=== PATIENT | female | born 1935 | race Caucasian/White ===

== ENCOUNTER → 2022-10-31 13:31 | Outpatient (CLI) | payer MEDICARE, OTHER, SELFPAY ==
--- NOTE | 2022-10-31 | DI.ECHO.S_ITS ---
[place] [facility]---------+ [facility] +---------+ : : [address] : : : : [place] [address] : : : : [id number] : : : : Phone: [phone]+ Echocardiogram Report + + :Name: MINNA HART Study Date: 10/31/2022 Height: 63 in : :[facility] ReadingLocation: Weight: 107 lb : : Gender: Female BSA: 1.5 m2 : :: 1935 Age: 87 yrs BP: 133/62 mmHg: :Reason For Study: CORONARY ARTERY DISEASE HR: 75 : :Ordering Physician: ALEXANDRA, : :AARON Performed By: SAY MALDONADO : :Referring: AARON MORRIS : + + Interpretation Summary The ejection fraction is estimated to be 55-60%. There is mild mitral regurgitation. No definite mitral valve prolapse There is mild aortic valve sclerosis. There is moderate to severe tricuspid regurgitation. The right ventricular systolic pressure is estimated to be at least 37 mmHg based on an estimated right atrial pressure of 8 mm Hg. Procedure: A two-dimensional transthoracic echocardiogram with color flow and Doppler was performed. The study quality was technically adequate. Comparison is made with the echocardiogram of 08/18/2020. The patient was in normal sinus rhythm during the exam. Left Ventricle: The left ventricle is normal in size and wall thickness. Left ventricular systolic function is normal. The ejection fraction is estimated to be 55-60%. Left ventricular wall motion is normal. Right Ventricle: The right ventricle is normal in size and function. Atria: The left atrial size is normal. The right atrium is moderately dilated. There is no Doppler evidence for an interatrial shunt. Mitral Valve: The mitral valve leaflets appear mildly thickened, but open well. The mitral valve leaflets are slightly calcified. No definite mitral valve prolapse. There is mild mitral regurgitation. Aortic Valve: The aortic valve is trileaflet. There is mild aortic valve sclerosis. There is no aortic valve stenosis. There is mild aortic regurgitation. Tricuspid Valve: The tricuspid valve leaflets are thickened and/or calcified, but open well. There is moderate to severe tricuspid regurgitation. The right ventricular systolic pressure is estimated to be at least 37 mmHg based on an estimated right atrial pressure of 8 mm Hg. Pulmonic Valve: The pulmonic valve leaflets are thin and pliable; valve motion is normal. There is mild pulmonic regurgitation. Great Vessels: The aortic root is normal size. The ascending aorta is normal in size. The IVC is dilated (diameter is greater than 2.1 cm) yet it collapses greater than 50% with a sniff. This suggests a right atrial pressure of 8 mm Hg. Pericardium/ Pleura There is no pericardial effusion. There is no pleural effusion. MMode/2D Measurements & Calculations LVIDd: 3.4 cm LVOT diam: 1.8 cm LVIDs: 2.1 cm Ao root diam: 3.4 cm FS: 38.2 % asc Aorta Diam: 3.5 cm IVSd: 0.90 cm LVPWd: 1.0 cm LV shelton. diameter/BSA (cm/m^2): 2.3 LV sys. diameter/BSA (cm/m^2): 1.4 LA A2 area: 10.4 cm2 RA long axis: 4.2 cm LA A4 area: 13.1 cm2 LA length (vol): 3.8 cm LA vol: 30.1 ml LA vol index: 20.3 ml/m2 LVLs ap4: 5.1 cm LVLd ap2: 6.8 cm LVLs ap2: 5.3 cm TAPSE_phl: 2.0 cm Doppler Measurements & Calculations Ao V2 max: 103.0 cm/sec LVOT Max Rodo: 89.4 cm/sec Ao V2 mean: 76.5 cm/sec LV V1 max P.2 mmHg Ao max P.2 mmHg LV V1 VTI: 19.6 cm Ao mean P.0 mmHg ROYCE(I,D): 2.1 cm2 Ao V2 VTI: 23.3 cm ROYCE(V,D): 2.2 cm2 sev ratio: 0.84 ROYCE indexed to BSA (cm^2/m^2): 1.4 MV E max rodo: 90.4 cm/sec TR max rodo: 271.0 cm/sec MV A max rodo: 70.3 cm/sec TR max P.4 mmHg MV E/A: 1.3 PA V2 max: 103.0 cm/sec Med Peak E' Rodo: 7.9 cm/sec PA V2 mean: 79.0 cm/sec E/E' med: 11.4 PA mean P.0 mmHg Lat Peak E' Rodo: 7.0 cm/sec PA pr(Accel): 34.4 mmHg E/E' lat: 13.0 E/e' average: 12.2 MV dec time: 0.18 sec SV(LVOT): 49.9 ml AV VR_phl: 0.87 ROYCE(VTI)/BSA_phl: 1.4 MV P1/2t-pr_phl: 53.0 msec Reading Physician:02:58 PM
== END ==
PROVIDERS: PCP Nurse Practitioner Family; Referring Provider Nurse Practitioner Family; Visit Provider Nurse Practitioner Family
DX: I08.3 Combined rheumatic disorders of mitral, aortic and tricuspid valves (principal); I25.119 Atherosclerotic heart disease of native coronary artery with unspecified angina pectoris; I25.2 Old myocardial infarction
CPT/HCPCS: 93306

== ENCOUNTER 2023-02-19 18:29 | Emergency (ER) | payer MEDICARE, OTHER, SELFPAY ==
[2023-02-19 18:44] VITALS: BP 147/66; PULSE 98; RESP 16; TEMP 37.4; O2SAT 97; BMI 18.8
--- NOTE | 2023-02-19 20:45 | PC.NURSE ---
pt states a few days ago she noticed BLE edema so she has been propping up her legs then her left wrist became red and swollen, the left elbow is also red an swollen, she has left shoulder pian but no redness or swelling noted. pt's right ankle is swollen but no redness is noted
--- NOTE | 2023-02-19 20:59 | ED.SKABFB ---
HPI - Skin/Abscess/Foreign Bdy General Chief complaint: Skin/Abscess/Foreign Body Stated complaint: FT swollen T-3, Larm pain/limited mobility Time Seen by Provider: 02/19/23 20:31 Source: patient Mode of arrival: Wheelchair History of Present Illness HPI narrative: Patient is an 88-year-old female currently being treated with Keflex for urinary tract infection without any specific trauma who a couple days ago started have swelling in both of her ankles. She reports that she also had some discomfort in her ankles with the time. The swelling in her left ankle has resolved in the 1 in her right ankle was actually improving but she is still having some discomfort and redness. Yesterday she started to have discomfort and redness to her left elbow when her left wrist. She also reports some discomfort to her left shoulder. She denies any fevers. She can flex and extend her elbow and her wrist but has quite a bit of discomfort with this. She is no history of gout. No fevers. Overall she feels well. Related Data Home Medications Medication Instructions Recorded Confirmed cephalexin 500 mg capsule 500 mg TID 02/19/23 02/19/23 Previous Rx's Medication Instructions Recorded colchicine 0.6 mg tablet (Colcrys) 0.6 mg PO BID #30 tabs 02/19/23 Allergies Allergy/AdvReac Type Severity Reaction Status Date / Time No Known Drug Allergies Allergy Verified 02/19/23 21:11 Review of Systems Constitutional Constitutional: Reports system reviewed and no additional complaints, except as documented Respiratory Respiratory: Reports system reviewed and no additional complaints, except as documented Musculoskeletal Musculoskeletal: Reports system reviewed and no additional complaints, except as documented Integumentary/Breasts Skin/Breast: Reports system reviewed and no additional complaints, except as documented Neurologic Neurologic: Reports system reviewed and no additional complaints, except as documented Hematologic/Lymphatic On Anticoagulants: No Patient History Social History Smoking Status: Never smoker Smoking Status: Never smoker Substance Use Type: does not use Exam Initial Vital Signs Initial Vital Signs: Vital Signs Temperature 99.3 F 02/19/23 18:44 Pulse Rate 98 H 02/19/23 18:44 Respiratory Rate 16 02/19/23 18:44 Blood Pressure 147/66 H 02/19/23 18:44 Pulse Oximetry 97 02/19/23 18:44 Oxygen Delivery Method Room Air 02/19/23 18:44 Const General: cooperative, comfortable and No ill appearing HENMT Head: normal to inspection and normocephalic Resp Effort & Inspection: normal respiratory effort Skin Other: Patient does have redness and swelling to the right ankle. There are no vesicles in the area. Patient also has redness on the dorsum of the left wrist and in the lateral aspect of the left elbow. Neuro General: patient alert, patient awake, patient oriented x3 and moves all extremities Extrem Other: Patient is able to ambulate. She does have swelling and redness to the left ankle. Is able to flex and extend. She does have tenderness along the lateral malleolus but equal tenderness on the medial malleolus and on the dorsum of the foot as well. She also has mild swelling and redness to the left wrist. She is able to flex and extend but has some discomfort with this limited by the discomfort. She is able to pronate and supinate. She is able to flex and extend her left elbow but has discomfort with this as well. Mild tenderness to palpation throughout the left elbow. Also has tenderness palpation of the left shoulder. Course Orders Ordered: ED Orders 02/19/23 21:00 XR ankle RT min 3V Stat XR elbow LT min 3V Stat XR wrist LT min 3V Stat 02/19/23 21:11 Basic Metabolic Panel Stat C-Reactive Protein Quant Stat Complete Blood Count AUTO DIFF Stat Erythrocyte Sedimentation Rate Stat NT-proBNP (BNP-Adult 18+) Stat Uric Acid Stat Discontinued Medications Colchicine (Colchicine 0.6 Mg Tablet) 1.2 mg PO NOW ONE Stop: 02/19/23 23:56 Last Admin: 02/20/23 00:14 Dose: 1.2 mg Documented By: SAEID Vital Signs Vital signs: Vital Signs - 8 hr 02/19/23 18:44 02/20/23 00:07 Temperature 99.3 F Pulse Rate 98 H 89 Respiratory Rate 16 18 Blood Pressure 147/66 H 134/69 Pulse Oximetry 97 96 Oxygen Delivery Method Room Air Room Air MDM - Skin/Abscess/Foreign Bdy Lab Data Attestation: I reviewed the patient's lab results. 02/19/23 21:11 02/19/23 21:11 Labs: Lab Results 02/19/23 02/19/23 Range/Units 21:11 21:11 WBC 14.0 H (4.5-11.0) X10^3/uL RBC 4.03 (4.0-5.2) X10^6/uL Hgb 11.2 L (12.0-16.0) g/dL Hct 34.1 L (36-46) % MCV 84.6 (80-100) fL MCH 27.8 (26-34) PG MCHC 32.9 (30-36) % RDW 14.0 (11.6-14.8) % Plt Count 394 (150-400) X10^3/uL Neut % (Auto) 74.3 (50-75) % Lymph % (Auto) 15.5 L (25-40) % [place] % (Auto) 8.6 (3-14) % Eos % (Auto) 0.5 L (2-4) % Baso % (Auto) 1.1 (0-2) % Neut # (Auto) 37018 H (3563-2894) /uL Lymph # (Auto) 2200 (4033-2842) /uL [place] # (Auto) 1200 H (0-900) /uL Eos # (Auto) 100 (0-450) /uL Baso # (Auto) 200 H (0-100) /uL ESR 61 H (0-20) MM/HR Sodium 136 L (137-145) mmol/L Potassium 3.6 (3.4-5.1) mmol/L Chloride 101 (98-107) mmol/L Carbon Dioxide 29 (22-32) mmol/L BUN 16 (7-17) mg/dL Creatinine 0.57 (0.52-1.04) mg/dL Estimated GFR > 60 (>60) mL/min BUN/Creatinine Ratio 28.1 H (6-22) Glucose 119 H (80-110) mg/dL Uric Acid 4.1 (2.5-6.2) mg/dL Calcium 9.0 (8.4-10.2) mg/dL C-Reactive Protein 13.6 H (<1.0) mg/dL NT-Pro-B Natriuret Pep 613 H (<450) pg/mL Imaging Data Extremity x-ray #1: Radiologist's Impression: PROCEDURE:? XR ANKLE RT MIN 3V ? INDICATIONS:? swelling ? TECHNIQUE:? 3 views of the ankle were acquired.? ? COMPARISON:? None. ? FINDINGS:? ? Bones:? There is a small avulsion fracture along the inferior aspect of the lateral malleolus.? No dislocation.? Ankle mortise is normally aligned.? No suspicious bony lesions.? ? Soft tissues:? There is a suspected small tibiotalar joint effusion.? Periarticular soft tissue swelling is demonstrated most prominent laterally.? Achilles tendon appears normal.? ? ? IMPRESSION:? ? 1. Small avulsion fracture of the lateral malleolus inferiorly. Extremity x-ray #2: Radiologist's Impression: PROCEDURE:? XR ELBOW LT MIN 3V ? INDICATIONS:? pain and swelling ? TECHNIQUE:? 3 views of the elbow were acquired.? ? COMPARISON:? None. ? FINDINGS:? ? Bones:? No displaced fractures or dislocation.? No suspicious bony lesions.? ? Soft tissues:? There is an elbow joint effusion.? No suspicious soft tissue calcifications.? ? ? IMPRESSION:? ? 1. No displaced fracture or dislocation. ? 2. Elbow joint effusion suspicious for an occult fracture.? Further evaluation may be obtained with a repeat study in 7-10 days or cross-sectional imaging.? Extremity x-ray #3: Radiologist's Impression: P a ROCEDURE:? XR WRIST LT MIN 3V ? INDICATIONS: pain and swelling ? TECHNIQUE:? 3 views of the wrist were acquired.? ? COMPARISON:? None. ? FINDINGS:? ? Bones:? No fractures or dislocations.? There is mild degeneration of the 1st carpometacarpal joint and triscaphe articulation.? Mild degeneration also demonstrated in the wrist at the radiocarpal joint and distal radioulnar joint.? No suspicious bony lesions.? ? Soft tissues:? There is mild chondrocalcinosis in the triangular fibrocartilage complex. ? IMPRESSION:? ? 1. No acute fracture or subluxation.? MDM Narrative Medical decision making narrative: X-rays show a avulsion fracture of the lateral malleolus but I feel that this is most likely old. She does have tenderness over this area but also has equal tenderness throughout her right ankle. She also has tenderness throughout her left elbow and is able to flex and extend but limited by the discomfort. She is no history of gout. Her uric acid is negative. She does have leukocytosis and elevation in her ESR and CRP but she is also being treated for urinary tract infection with antibiotics. There is concern about gout versus other inflammatory process versus an infectious process. I did discuss the case with Dr. Daugherty on-call with Orthopedics. We are both in agreement that her presentation is less likely trauma. Is also less likely infectious just given the nature of the exam. There still the possibility that this is gout. Plan will be is to start her on colchicine. Her 1st dose was given here in the emergency department. Patient was also given instructions for follow-up with orthopedics. She will call their office tomorrow for follow-up in the next couple days. She was also given specific return precautions. She expressed understanding and agreement. I feel that likelihood of being successful with an arthrocentesis in her elbow wrist or ankle is unsuccessful as there is very little if any effusion noted. Discharge Plan Departure Patient Disposition: Home Clinical Impression: Arthritis Instructions: Arthritis (Alternative Therapy) Activity Restrictions/Additional Instructions: I recommend that you continue to take all of your medications as directed. Tomorrow contact the orthopedic doctor at the number provided below for a follow-up. A prescription for a medicine called colchicine was sent to the pharmacy of your choice. Please start taking it as directed. You can stop taking it after all of the pain and redness resolves. Return to the emergency department for new or worsening symptoms. Prescriptions: New colchicine [Colcrys] 0.6 mg tablet 0.6 mg PO BID Qty: 30 0RF Rx Instructions: take until pain and redness resolves then stop No Action cephalexin 500 mg capsule 500 mg TID Referrals: Riddhi Daugherty MD [Physician] - Stand Alone Forms: Patient Portal/API
--- NOTE | 2023-02-19 21:00 | DI.RAD.S_ITS ---
PROCEDURE: XR ELBOW LT MIN 3V INDICATIONS: pain and swelling TECHNIQUE: 3 views of the elbow were acquired. COMPARISON: None. FINDINGS: Bones: No displaced fractures or dislocation. No suspicious bony lesions. Soft tissues: There is an elbow joint effusion. No suspicious soft tissue calcifications. IMPRESSION: 1. No displaced fracture or dislocation. 2. Elbow joint effusion suspicious for an occult fracture. Further evaluation may be obtained with a repeat study in 7-10 days or cross-sectional imaging. Dictated by: Joaquin Santos M.D. on 02/19/2023 at 23:02 Approved by: Joaquin Santos M.D. on 02/19/2023 at 23:03
--- NOTE | 2023-02-19 21:00 | DI.RAD.S_ITS ---
PROCEDURE: XR ANKLE RT MIN 3V INDICATIONS: swelling TECHNIQUE: 3 views of the ankle were acquired. COMPARISON: None. FINDINGS: Bones: There is a small avulsion fracture along the inferior aspect of the lateral malleolus. No dislocation. Ankle mortise is normally aligned. No suspicious bony lesions. Soft tissues: There is a suspected small tibiotalar joint effusion. Periarticular soft tissue swelling is demonstrated most prominent laterally. Achilles tendon appears normal. IMPRESSION: 1. Small avulsion fracture of the lateral malleolus inferiorly. Dictated by: Joaquin Santos M.D. on 02/19/2023 at 22:56 Approved by: Joaquin Santos M.D. on 02/19/2023 at 23:02
--- NOTE | 2023-02-19 21:00 | DI.RAD.S_ITS ---
P a ROCEDURE: XR WRIST LT MIN 3V INDICATIONS: pain and swelling TECHNIQUE: 3 views of the wrist were acquired. COMPARISON: None. FINDINGS: Bones: No fractures or dislocations. There is mild degeneration of the 1st carpometacarpal joint and triscaphe articulation. Mild degeneration also demonstrated in the wrist at the radiocarpal joint and distal radioulnar joint. No suspicious bony lesions. Soft tissues: There is mild chondrocalcinosis in the triangular fibrocartilage complex. IMPRESSION: 1. No acute fracture or subluxation. Dictated by: Joaquin Santos M.D. on 02/19/2023 at 23:03 Approved by: Joaquin Santos M.D. on 02/19/2023 at 23:04
[2023-02-19 21:20] LABS: Add Manual Diff / Slide Review NO; Basophils Absolute Auto 200 /uL (0-100); Basophils Percent Auto 1.1 % (0-2); Eosinophils Absolute Auto 100 /uL (0-450); Eosinophils Percent Auto 0.5 % (2-4); Hematocrit 34.1 % (36-46); Hemoglobin 11.2 g/dL (12.0-16.0); Lymphocytes Absolute Auto 2200 /uL (1100-4500); Lymphocytes Percent Auto 15.5 % (25-40); Mean Corpuscular HGB Conc 32.9 % (30-36); Mean Corpuscular Hemoglobin 27.8 PG (26-34); Mean Corpuscular Volume 84.6 fL (80-100); Monocytes Absolute Auto 1200 /uL (0-900); Monocytes Percent Auto 8.6 % (3-14); Neutrophils Absolute Auto 10400 /uL (1500-7000); Neutrophils Percent Auto 74.3 % (50-75); Platelet Count 394 X10^3/uL (150-400); Red Blood Cell Count 4.03 X10^6/uL (4.0-5.2)
[2023-02-19 21:43] LABS: BUN Creatinine Ratio 28.1 (6-22); Blood Urea Nitrogen 16 mg/dL (7-17); Carbon Dioxide 29 mmol/L (22-32); Chloride 101 mmol/L (98-107); Estimated Glomerular Filt Rate > 60 mL/min (>60); Glucose 119 mg/dL (80-110); HEMOLYSIS < 15 (0-50); Potassium 3.6 mmol/L (3.4-5.1); Sodium 136 mmol/L (137-145); Uric Acid 4.1 mg/dL (2.5-6.2)
[2023-02-19 21:49] LABS: NT-proBNP (BNP-Adult 18+) 613 pg/mL (<450)
[2023-02-19 21:55] LABS: C-Reactive Protein Quant 13.6 mg/dL (<1.0)
[2023-02-19 22:06] LABS: Erythrocyte Sedimentation Rate 61 MM/HR (0-20)
[2023-02-20 00:07] VITALS: BP 134/69; PULSE 89; RESP 18; O2SAT 96
[2023-02-20] MEDS: COLCHICINE 0.6 MG TABLET 1.2 MG PO (00:14)
== END 2023-02-20 00:17 | disposition home or self-care (01) ==
PROVIDERS: Emergency Provider Emergency Medicine
DX: M19.90 Unspecified osteoarthritis, unspecified site (principal)
CPT/HCPCS: 36415; 73080; 73110; 73610; 80048; 83880; 84550; 85025; 85651; 86140; 99283; 99284

== ENCOUNTER → 2024-04-08 09:37 | Outpatient (CLI) | payer MEDICARE, OTHER, SELFPAY ==
--- NOTE | 2024-04-08 20:45 | DI.NM.S_ITS ---
DATE OF SERVICE: 04/08/2024 PROCEDURE PERFORMED: Pharmacologic vasodilator stress and rest myocardial perfusion imaging with gating to assess ejection fraction and regional wall motion. 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 CARDIAC STRESS: Per protocol, 0.4 mg of regadenoson was infused with a normal hemodynamic response. She had mild dyspnea, but no chest discomfort. Her resting ECG shows left axis deviation but normal ST segments and there are no significant ST-segment shifts or arrhythmias with stress. Per protocol, 26.0 millicuries of technetium-99m Myoview was injected and she was imaged 15 minutes later using a gated SPECT acquisition protocol. Earlier in the day while at rest, she had been injected with 11.5 millicuries of technetium-99m Myoview and was imaged 15 minutes later, again using a gated SPECT acquisition protocol. FINDINGS: 1. Raw data. There is fairly good myocardial tracer uptake with minimal breast shadows noted. The lung/heart ratio is normal at 0.38 with a normal TID ratio of 0.96. 2. Quantitated gated SPECT: Post-stress ejection fraction is estimated 85% without any focal wall motion abnormality and specifically the mid anterior wall has normal, brisk contractility. The resting ejection fraction is 78% with an identical contraction pattern. The resting end-diastolic volume is normal at 63 mL. 3. Myocardial perfusion imaging: Post-stress supine images show a fairly normal myocardial perfusion pattern although with a small focal defect in the mid anterior wall, sparing the apex that completely resolves on the prone images, suggesting attenuation artifact. There is also a subtle defect at the base of the lateral wall that also resolves on prone imaging, again suggesting attenuation artifact. The resting images show some slight improvement to the focal anterior defect but it remains predominantly fixed. Similarly, the defect in the proximal lateral wall also is essentially unchanged, perhaps slightly improved. IMPRESSION: 1. Probable normal, low risk myocardial perfusion study. 2. Small, focal, partially reversible, but predominantly fixed perfusion defect in the mid anterior wall that resolves on prone imaging, most likely attenuation artifact. In addition, there is a very subtle, predominantly fixed defect at the base of the lateral wall that also resolves on prone imaging, again suggesting probable attenuation artifact.There is no compelling perfusion defects to suggest significant myocardial ischemia. 3. Normal left ventricular systolic function with relatively small left ventricular volumes. 4. No angina or ECG evidence of ischemia with pharmacologic vasodilator stress. Muna Bernard - XAVI/elizabeth/DARLIN doc#: [id number]/job#: [id number] dd: 04/08/2024 16:40:00 dt: 04/08/2024 20:29:00 DICTATING MD/COPIES TO: Cristofer Dooley MD; VIRGIE Rodrigues COPIES MNE: LIAN; ; VIRGIE Rodrigues
== END ==
PROVIDERS: PCP Nurse Practitioner Family; Referring Provider Nurse Practitioner Acute Care; Visit Provider Nurse Practitioner Acute Care
DX: R07.9 Chest pain, unspecified (principal); I25.119 Atherosclerotic heart disease of native coronary artery with unspecified angina pectoris; R94.39 Abnormal result of other cardiovascular function study
CPT/HCPCS: 78452; 93017; A9502; J2785

== ENCOUNTER → 2024-05-10 14:58 | Outpatient (CLI) | payer MEDICARE, OTHER, SELFPAY ==
--- NOTE | 2024-05-10 14:59 | DI.ECHO.S_ITS ---
[place] [facility]---------+ [facility] : : [address] : : [place] [address] : : [id number] : : Phone: [phone] Echocardiogram Report + + :Name: MINNA HART Study Date: 05/10/2024 Height: 63 in : :[facility] ReadingLocation: Weight: 120 lb : : Gender: Female BSA: 1.6 m2 : :: 1935 Age: 89 yrs BP: 180/92 mmHg: :Reason For Study: CAD : :Ordering Physician: RUBEN, : :AUGUSTINE Performed By: Tariq Coe : :Referring: AUGUSTINE MIRANDA : + + Interpretation Summary The ejection fraction is estimated to be 60-65%. There is mild mitral regurgitation. There is moderate tricuspid regurgitation. The right ventricular systolic pressure is estimated to be at least 37 mmHg based on an estimated right atrial pressure of 3 mm Hg. Compared to the prior echo report on 2022, there is no significant change. Procedure: A two-dimensional transthoracic echocardiogram with color flow and Doppler was performed. The study quality was technically adequate. Comparison is made with the echocardiogram of 10/31/22. The patient was in normal sinus rhythm during the exam. Left Ventricle: The left ventricle is normal in size. There is normal left ventricular wall thickness. There is no ventricular septal defect visualized. The ejection fraction is estimated to be 60-65%. There are no focal wall motion abnormalities. Right Ventricle: The right ventricle is normal in size and function. The right ventricular systolic function is normal. Atria: The left atrium is moderately dilated. The right atrium is moderately dilated. There is no Doppler evidence for an atrial septal defect. Mitral Valve: The mitral valve is normal in structure and function. There is mild mitral regurgitation. Aortic Valve: The aortic valve is trileaflet. The aortic valve opens well. There is trace aortic regurgitation. Tricuspid Valve: The tricuspid valve is normal in structure and function. There is moderate tricuspid regurgitation. The right ventricular systolic pressure is estimated to be at least 37 mmHg based on an estimated right atrial pressure of 3 mm Hg. Pulmonic Valve: The pulmonic valve is normal in structure and function. There is trace pulmonic regurgitation. Great Vessels: The aortic root is normal size. The dimensions of the ascending aorta are normal. The pulmonary artery is normal size. Pericardium/ Pleura There is no pericardial effusion. There is no pleural effusion. MMode/2D Measurements & Calculations LVIDd: 4.0 cm LVOT diam: 1.9 cm LVIDs: 2.6 cm Ao root diam: 2.9 cm FS: 34.7 % asc Aorta Diam: 3.6 cm EPSS: 0.51 cm Ao Arch Diam (Prox Trans): 2.6 cm IVSd: 0.70 cm LVPWd: 0.73 cm LV shelton. diameter/BSA (cm/m^2): 2.6 LV sys. diameter/BSA (cm/m^2): 1.7 LA A2 area: 19.5 cm2 RA long axis: 5.5 cm LA A4 area: 20.3 cm2 RA area: 18.9 cm2 LA length (vol): 5.3 cm RA vol: 55.2 ml LA vol: 63.1 ml RA : 35.5 ml/m2 LA vol index: 40.5 ml/m2 IVC diam: 1.7 cm RVD1 (basal): 3.1 cm RVD2 (mid): 2.8 cm TAPSE: 2.0 cm Doppler Measurements & Calculations Ao V2 max: 125.7 cm/sec LVOT Max Silva: 89.1 cm/sec Ao V2 mean: 91.8 cm/sec LV V1 max P.2 mmHg Ao max P.3 mmHg LV V1 VTI: 21.3 cm Ao mean P.7 mmHg ROYCE(I,D): 2.1 cm2 Ao V2 VTI: 29.4 cm ROYCE(V,D): 2.0 cm2 sev ratio: 0.73 ROYCE indexed to BSA (cm^2/m^2): 1.3 AI P1/2t: 410.1 msec AI dec slope: 267.5 cm/sec2 MV E max silva: 83.1 cm/sec TR max silva: 291.4 cm/sec MV A max silva: 75.8 cm/sec TR max P.0 mmHg MV E/A: 1.1 PA V2 max: 86.2 cm/sec Med Peak E' Silva: 7.1 cm/sec PA V2 mean: 58.4 cm/sec E/E' med: 11.7 PA mean P.5 mmHg Lat Peak E' Silva: 6.1 cm/sec PA pr(Accel): 31.0 mmHg E/E' lat: 13.7 E/e' average: 12.7 MV dec time: 0.14 sec SV(LVOT): 61.5 ml Reading Physician:01:17 PM
== END ==
PROVIDERS: PCP Nurse Practitioner Family; Referring Provider Nurse Practitioner Acute Care; Visit Provider Nurse Practitioner Acute Care
DX: I08.1 Rheumatic disorders of both mitral and tricuspid valves (principal)
CPT/HCPCS: 93306

== ENCOUNTER → 2025-05-23 13:50 | Outpatient (CLI) | payer MEDICARE, OTHER, SELFPAY ==
--- NOTE | 2025-05-23 13:53 | DI.ECHO.S_ITS ---
[place] [facility]---------+ [facility] : : [address] : : [place] : : [id number] : : Phone: [phone] Echocardiogram Report + + :Name: MINNA HART Study Date: 05/23/2025 Height: 62 in : :[facility] ReadingLocation: Weight: 110 lb : : Gender: Female BSA: 1.5 m2 : :: 1935 Age: 89 yrs BP: 169/90 mmHg: :Reason For Study: Tricuspid regurgitation : :Ordering Physician: RUBEN, : :AUGUSTINE Performed By: Leandro Enciso : :Referring: AUGUSTINE MIRANDA : + + Interpretation Summary The ejection fraction is estimated to be 60-65%. The right ventricle is normal in size and function. The right atrium is moderately dilated. There is mild mitral regurgitation. There is mild aortic regurgitation. There is moderate to severe tricuspid regurgitation. The right ventricular systolic pressure is estimated to be at least 63 mmHg based on an estimated right atrial pressure of 15 mm Hg. Compared to the prior echo exam, there has been an increase in the severity of pulmonary hypertension. Procedure: A two-dimensional transthoracic echocardiogram with color flow and Doppler was performed. The study quality was technically adequate. Comparison is made with the echocardiogram of 05/10/2024. The heart rate ranged between 69-100 bpm during the study. Left Ventricle: The left ventricle is normal in size and wall thickness. Left ventricular systolic function is normal. The ejection fraction is estimated to be 60-65%. There are no focal wall motion abnormalities. Diastolic function is indeterminate. Right Ventricle: The right ventricle is normal in size and function. Atria: The left atrium is mildly dilated. The right atrium is moderately dilated. There is no Doppler evidence for an interatrial shunt. Mitral Valve: The mitral valve leaflets appear to open well. There is no mitral valve stenosis. There is mild mitral regurgitation. Aortic Valve: The aortic valve is trileaflet. There is mild aortic valve sclerosis. There is no aortic valve stenosis. There is mild aortic regurgitation. Tricuspid Valve: Tricuspid valve leaflets appear mildly thickened, with malcoaptation of the leaflets. There is moderate to severe tricuspid regurgitation. The right ventricular systolic pressure is estimated to be at least 63 mmHg based on an estimated right atrial pressure of 15 mm Hg. Compared to the prior echo exam, there has been an increase in the severity of pulmonary hypertension. Pulmonic Valve: There is mild thickening of the pulmonic valve. There is mild pulmonic regurgitation. Great Vessels: There is aortic root sclerosis/calcification. The aortic root is normal size. 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 The pulmonary artery is normal size. The IVC is dilated (diameter is greater than 2.1 cm) and it collapses less than 50% with a sniff. This suggests a high right atrial pressure of 15 mm Hg. Pericardium/ Pleura There is no pericardial effusion. MMode/2D Measurements & Calculations LVIDd: 3.8 cm LVOT diam: 2.0 cm LVIDs: 2.7 cm Ao root diam: 3.0 cm FS: 28.4 % asc Aorta Diam: 3.6 cm IVSd: 0.91 cm LVPWd: 0.95 cm LV shelton. diameter/BSA (cm/m^2): 2.6 LV sys. diameter/BSA (cm/m^2): 1.8 LA A2 area: 17.2 cm2 RA long axis: 5.1 cm LA A4 area: 14.8 cm2 RA area: 16.2 cm2 LA length (vol): 4.8 cm RA vol: 44.3 ml LA vol: 45.4 ml RA : 29.9 ml/m2 LA vol index: 30.6 ml/m2 IVC diam: 2.4 cm RVD1 (basal): 3.2 cm RVD2 (mid): 2.8 cm TAPSE: 1.7 cm Doppler Measurements & Calculations Ao V2 max: 127.9 cm/sec LVOT Max Silva: 84.8 cm/sec Ao V2 mean: 77.4 cm/sec LV V1 max P.9 mmHg Ao max P.5 mmHg LV V1 VTI: 17.7 cm Ao mean P.9 mmHg ROYCE(I,D): 2.1 cm2 Ao V2 VTI: 25.2 cm ROYCE(V,D): 2.0 cm2 sev ratio: 0.70 ROYCE indexed to BSA (cm^2/m^2): 1.4 AI P1/2t: 652.8 msec AI dec slope: 166.6 cm/sec2 MV E max silva: 112.8 cm/sec TR max silva: 347.9 cm/sec MV A max silva: 75.6 cm/sec TR max P.4 mmHg MV E/A: 1.5 PA V2 max: 81.8 cm/sec Med Peak E' Silva: 7.7 cm/sec PA V2 mean: 56.9 cm/sec E/E' med: 14.7 PA mean P.5 mmHg Lat Peak E' Silva: 6.7 cm/sec PA pr(Accel): 40.5 mmHg E/E' lat: 16.9 E/e' average: 15.8 MV dec time: 0.14 sec SV(LVOT): 53.2 ml Qp/Qs (V,Ao): 1.0/4.0 Qp/Qs (V,LVOT): 1.0/1.2 Reading Physician:02:13 PM
== END ==
LOC: ECHO 13:52
PROVIDERS: PCP Nurse Practitioner Family; Referring Provider Nurse Practitioner Acute Care; Visit Provider Nurse Practitioner Acute Care
DX: I08.3 Combined rheumatic disorders of mitral, aortic and tricuspid valves (principal); I70.0 Atherosclerosis of aorta
CPT/HCPCS: 93306

== ENCOUNTER → 2025-07-31 14:54 | Outpatient (CLI) | payer MEDICARE, OTHER, SELFPAY | PROVIDERS: PCP Nurse Practitioner Family; Referring Provider Nurse Practitioner Acute Care; Visit Provider Nurse Practitioner Acute Care | DX: I27.20 Pulmonary hypertension, unspecified (principal); R94.2 Abnormal results of pulmonary function studies | CPT/HCPCS: 94060; 94726; 94729 ==